=== PATIENT | male | born 1955 | race Caucasian/White ===

== ENCOUNTER 2018-06-18 13:15 | Outpatient (CLI) | END 2018-06-18 13:16 | disposition home or self-care (01) | LOC: CAR 13:15 | PROVIDERS: ATTEND Physician Assistant Medical | DX: I10 Essential (primary) hypertension (principal) | CPT/HCPCS: 93005; 93010 ==

== ENCOUNTER 2019-01-28 09:38 | Outpatient (CLI) | END 2019-01-28 09:39 | disposition home or self-care (01) | LOC: RHC-LAB 09:38 → FCC-LAB 09:39 | PROVIDERS: ATTEND Family Medicine | DX: Z00.00 Encounter for general adult medical examination without abnormal findings (principal) | CPT/HCPCS: 36415; 80053; 80061; 85025 ==

== ENCOUNTER 2019-01-29 07:38 | Outpatient (CLI) ==
--- NOTE | 2019-01-29 08:57 | US ---
EXAM: Ultrasound of the abdominal aorta for aneurysm screening History: Screening for abdominal aortic aneurysm, family history of aneurysm. Technique: Multiple sonographic images through the abdominal aorta were obtained. Color duplex Dopp ler was used to interrogate vascular flow. Findings: The proximal abdominal aorta measures 2.5 cm x 2.6 cm. The mid abdominal aorta measures 1.7 cm x 1.7 cm. The distal abdominal aorta measures 1.8 cm x 1.7 cm. The right common iliac artery measures 1.2 cm x 1.1 cm. The left common iliac artery measures 1.1 cm x 1.1 cm. Impression: No sonographic evidence for abdominal aortic aneurysm
== END 2019-01-29 07:39 | disposition home or self-care (01) ==
LOC: RAD 07:38
PROVIDERS: ATTEND Family Medicine
DX: Z82.49 Family history of ischemic heart disease and other diseases of the circulatory system (principal)
CPT/HCPCS: 76706